=== PATIENT | male | born 1980 | race Caucasian/White ===

== ENCOUNTER 2017-05-13 23:31 | Emergency (ER) | payer SELFPAY ==
[~2017-05-13] VITALS: Ht 185.4 cm; Wt 68.0 kg
[~2017-05-13 23:31] MED LIST: CYCL10TA29 PO
[2017-05-13 23:34] VITALS: BP 171/110
--- NOTE | 2017-05-13 23:36 | ER Report ---
History and Physical Time Seen By MD: 23:35 HPI/ROS CHIEF COMPLAINT: Shelter clearance HISTORY OF PRESENT ILLNESS: 36-year-old male brought in by police for [facility] clearance. Patient smells of alcohol and has slurred speech. Patient denies any injury. Her past medical history. REVIEW OF SYSTEMS: Respiratory: No cough, no dyspnea. Cardiovascular: No chest pain, no palpitations. Gastrointestinal: No vomiting, no abdominal pain. Musculoskeletal: No back pain. Allergies: Coded Allergies: Penicillins (Unverified Allergy, Mild, 05/13/17) Home Meds Discontinued Scripts Cyclobenzaprine Hcl (CYCLOBENZAPRINE HCL) 10 Mg Tablet, 10 MG PO TID, #9 TAB Prov:DANIEL ABBOTT CNA CAREGIVER 07/14/16 Reviewed Nurses Notes: Yes Old Medical Records Reviewed: Yes Constitutional Vital Sign - Last 24 Hours 05/13/17 23:34 Temp 97.9 Pulse 118 Resp 14 B/P (MAP) 171/110 Pulse Ox 94 O2 Delivery Room Air Physical Exam General Appearance: The patient is alert, has no immediate need for airway protection and no current signs of toxicity.. Palpation of the head and neck reveals no tenderness or trauma HEENT: Pupils equal and round no injection. TMs normal, oropharynx without dental trauma Respiratory: Chest is non tender, lungs are clear to auscultation. Cardiac: regular rate and rhythm Gastrointestinal: Abdomen is soft and non tender, no masses, bowel sounds normal. Musculoskeletal: Neck: Neck is supple and non tender. Extremities have full range of motion and are non tender. Skin: No rashes or lesions. DIFFERENTIAL DIAGNOSIS: After history and physical exam differential diagnosis was considered for alcohol intoxication, polysubstance abuse, [facility]cc clearance Medical Decision Making ED Course/Re-evaluation ED Course Patient was admitted to an examination room. H&P was done. The dental diagnoses was considered. On conical examination. Patient has no clinical findings. His vital signs are stable. His blood pressure is elevated. He is mildly tachycardic. Likely the anxiety being arrested. Patient's medical cleared for [facility] admission. Decision to Disposition Date: May 13, 2017 Decision to Disposition Time: 23:38 Depart Departure Latest Vital Signs Vital Signs Date Time Temp Pulse Resp B/P (MAP) Pulse Ox O2 Delivery O2 Flow Rate FiO2 05/13/17 23:34 97.9 118 14 171/110 94 Room Air Impression: Primary Impression: Medical clearance for incarceration Additional Impression: Alcohol intoxication Condition: Improved Disposition: HOME OR SELF-CARE New Scripts No Active Prescriptions or Reported Meds Patient Instructions: Alcohol Intoxication (ED) Additional Instructions: Medically cleared for [facility] admission Problem Qualifiers Additional Impression: Alcohol intoxication Complication of substance-induced condition: uncomplicated Qualified Codes: F10.920 - Alcohol use, unspecified with intoxication, uncomplicated DANN ZEE DO May 13, 2017 23:36
== END 2017-05-13 23:53 | disposition home or self-care (01) ==
LOC: ER 23:45
DX: F10.920 Alcohol use, unspecified with intoxication, uncomplicated (principal)
CPT/HCPCS: 99281